=== PATIENT | male | born 1960 | race Caucasian/White ===

== ENCOUNTER 2017-03-15 10:33 | Emergency (ER) | payer BC ==
[~2017-03-15] VITALS: Ht 175.3 cm; Wt 97.5 kg
[2017-03-15 10:39] VITALS: BP_SYST 124
[2017-03-15] MEDS ORDERED: BACITRACIN 1 GM OINT TP ONE (11:00)
[2017-03-15] MEDS ORDERED: LIDOCAINE 1% 10 MG/ML, 20 ML MDV IJ ONE (11:00)
[2017-03-15] MEDS ORDERED: DIPH-TET-PERTUS Vaccine 0.5 ML VIAL (ADACEL) IM ONE (11:00)
[2017-03-15 11:43] VITALS: BP_SYST 122
== END 2017-03-15 11:43 | disposition home or self-care (01) ==
LOC: SED 10:33
DX: S51.812A Laceration without foreign body of left forearm, initial encounter (principal); Z88.0 Allergy status to penicillin; W26.0XXA Contact with knife, initial encounter; Y93.89 Activity, other specified; Y92.89 Other specified places as the place of occurrence of the external cause; Y99.8 Other external cause status
CPT/HCPCS: 12002; 90471; 90715; 99283; J2001

== ENCOUNTER 2017-03-25 11:29 | Emergency (ER) | payer BC ==
[~2017-03-25] VITALS: Ht 175.3 cm; Wt 97.5 kg
[2017-03-25 11:30] VITALS: BP_SYST 135
== END 2017-03-25 12:35 | disposition left against medical advice (07) ==
LOC: SED 11:29
DX: S51.812A Laceration without foreign body of left forearm, initial encounter (principal); E11.9 Type 2 diabetes mellitus without complications; Z88.0 Allergy status to penicillin; Z96.631 Presence of right artificial wrist joint; Z53.20 Procedure and treatment not carried out because of patient's decision for unspecified reasons; W26.0XXD Contact with knife, subsequent encounter
CPT/HCPCS: 99281